=== PATIENT | male | born 1970 | race Caucasian/White ===

== ENCOUNTER 2017-04-07 08:55 | Inpatient (IN) | payer SELFPAY ==
[~2017-04-07] VITALS: Ht 167.6 cm; Wt 81.6 kg
[2017-04-07 11:12] LABS: BASOPHILS % 0.3 % (0.0-2.0); EOSINOPHILS % 0.2 % (0.0-5.0); HEMATOCRIT. 40.3 % (42.0-52.0); HEMOGLOBIN. 13.9 g/dL (14.0-18.0); LYMPHOCYTES % 9.5 % (20.0-50.0); MEAN CORPUSCULAR HEMOGLOBIN 34.2 pg (28.0-32.0); MEAN PLATELET VOLUME 7.9 fl (7.4-10.4); MONOCYTES % 11.2 % (2.0-8.0); NEUTROPHILS % 78.8 % (40.0-76.0); PLATELET 245 x1000/uL (130-400); RED BLOOD CELL COUNT 4.07 mill/uL (4.7-6.1); RED CELL DISTRIBUTION WIDTH 13.1 % (11.6-14.6)
[2017-04-07 11:20] LABS: CARBON DIOXIDE 27 mEq/L (21-32); CHLORIDE 100 mEq/L (98-107); ETHANOL BLOOD < 10 mg/dL
[2017-04-07 11:57] LABS: CLARITY URINE CLEAR (CLEAR); COLOR URINE YELLOW (YELLOW); GLUCOSE URINE 3+ (NEGATIVE); KETONES URINE NEGATIVE (NEGATIVE); LEUKOCYTE ESTERASE URINE 1+ (NEGATIVE); NITRITE URINE NEGATIVE (NEGATIVE); OCCULT BLOOD URINE 3+ (NEGATIVE); PH URINE 5.5 (4.5-8.0); PROTEIN URINE TRACE (NEGATIVE); SPECIFIC GRAVITY URINE 1.024 (1.005-1.030)
[2017-04-07 12:14] LABS: *AMPHETAMINES SCREEN URINE PRESUMTIVE POSITIVE (NEGATIVE); *BARBITURATES SCREEN URINE NEGATIVE (NEGATIVE); *BENZODIAZEPINES SCREEN URINE NEGATIVE (NEGATIVE); *COCAINE SCREEN URINE NEGATIVE (NEGATIVE); CANNABINOID URINE SCREEN PRESUMTIVE POSITIVE (NEGATIVE); METHADONE URINE SCREEN NEGATIVE (NEGATIVE); OPIATES URINE SCREEN NEGATIVE (NEGATIVE); PHENCYCLIDINE URINE SCREEN NEGATIVE (NEGATIVE)
[2017-04-07] MEDS ORDERED: SODIUM CHLORIDE 0.9% 10ML VIAL ONE (12:26)
[2017-04-07] MEDS ORDERED: IOHEXOL-300 100 ML BOTTLE ONE (12:26)
[2017-04-07] MEDS ORDERED: LEVOFLOXACIN 500MG PREMIX 100 ML IV SCH (14:00)
[2017-04-07] MEDS ORDERED: METRONIDAZOLE 500 MG PREMIX 100 ML IV SCH (14:30)
[2017-04-07] MEDS ORDERED: ACETAMINOPHEN 325MG TABLET PO ONE (15:00)
[2017-04-07] MEDS ORDERED: KETOROLAC 30MG/ML VIAL IV ONE (15:00)
[2017-04-07 16:00] VITALS: BP 115/77
[2017-04-07 16:40] VITALS: BP 115/77
[2017-04-07] MEDS ORDERED: MAGNESIUM/ALUMINUM HYDROXIDE/SIMETHICONE 30ML UDC PO PRN (18:00)
[2017-04-07] MEDS ORDERED: CLONIDINE 0.1MG TABLET PO PRN (18:00)
[2017-04-07] MEDS ORDERED: DIPHENHYDRAMINE 50MG/ML VIAL IV PRN (18:00)
[2017-04-07] MEDS ORDERED: ONDANSETRON HCL 4MG/2ML VIAL IV PRN (18:00)
[2017-04-07] MEDS ORDERED: ACETAMINOPHEN 325MG TABLET PO PRN (18:00)
[2017-04-07] MEDS ORDERED: HYDROCODONE/ACETAMINOPHEN 10/325MG TABLET PO PRN (18:00)
[2017-04-07 20:00] VITALS: BP 106/67
[2017-04-07] MEDS ORDERED: POTASSIUM CHLORIDE 20MEQ TABLET SR PO NR (20:15)
[2017-04-08 00:52] VITALS: BP 95/55
[2017-04-08] MEDS: METRONIDAZOLE 500 MG PREMIX 100 ML IV SCH ×3 (01:03→18:22)
[2017-04-08] MEDS: SODIUM CHLORIDE 0.9% 1,000 ML IV SCH ×3 (01:24→18:21)
[2017-04-08 04:50] VITALS: BP 104/62
[2017-04-08 05:52] LABS: BASOPHILS % 0.2 % (0.0-2.0); EOSINOPHILS % 0.4 % (0.0-5.0); HEMATOCRIT. 39.6 % (42.0-52.0); HEMOGLOBIN. 13.6 g/dL (14.0-18.0); LYMPHOCYTES % 13.3 % (20.0-50.0); MEAN CORPUSCULAR HEMOGLOBIN 33.9 pg (28.0-32.0); MEAN CORPUSCULAR VOLUME 98.6 fL (80.0-94.0); MEAN PLATELET VOLUME 8.2 fl (7.4-10.4); MONOCYTES % 12.5 % (2.0-8.0); NEUTROPHILS % 73.6 % (40.0-76.0); PLATELET 242 x1000/uL (130-400); RED BLOOD CELL COUNT 4.02 mill/uL (4.7-6.1); RED CELL DISTRIBUTION WIDTH 12.8 % (11.6-14.6)
[2017-04-08 06:44] LABS: CARBON DIOXIDE 27 mEq/L (21-32); CHLORIDE 103 mEq/L (98-107)
[2017-04-08 08:00] VITALS: BP 114/79
[2017-04-08 12:00] VITALS: BP 108/62
[2017-04-08] MEDS ORDERED: LEVOFLOXACIN 500MG PREMIX 100 ML IV SCH (14:00)
[2017-04-08 16:00] VITALS: BP 107/62
[2017-04-08 20:00] VITALS: BP 115/75
[2017-04-09] VITALS: BP 118/76
[2017-04-09] MEDS: SODIUM CHLORIDE 0.9% 1,000 ML IV SCH ×2 (03:53→09:00)
[2017-04-09] MEDS: METRONIDAZOLE 500 MG PREMIX 100 ML IV SCH ×2 (03:53→08:59)
[2017-04-09 04:45] VITALS: BP 116/74
[2017-04-09 06:54] LABS: BASOPHILS % 0.2 % (0.0-2.0); EOSINOPHILS % 1.7 % (0.0-5.0); HEMATOCRIT. 40.1 % (42.0-52.0); HEMOGLOBIN. 13.7 g/dL (14.0-18.0); LYMPHOCYTES % 13.5 % (20.0-50.0); MEAN CORPUSCULAR HEMOGLOBIN 33.6 pg (28.0-32.0); MEAN CORPUSCULAR VOLUME 98.7 fL (80.0-94.0); MEAN PLATELET VOLUME 8.2 fl (7.4-10.4); MONOCYTES % 11.7 % (2.0-8.0); NEUTROPHILS % 72.9 % (40.0-76.0); PLATELET 272 x1000/uL (130-400); RED BLOOD CELL COUNT 4.06 mill/uL (4.7-6.1); RED CELL DISTRIBUTION WIDTH 12.5 % (11.6-14.6)
[2017-04-09 08:00] VITALS: BP 94/65
[2017-04-09] MEDS ORDERED: GENTAMICIN SULFATE 180 MG in SODIUM CHLORIDE 0.9% 100 ML IV SCH (11:00)
== END 2017-04-09 09:45 | disposition left against medical advice (07) | DRG 720 ==
LOC: ER 09:49 → 6EST 14:40 → EDBEDREQ 15:18 → CANRESERV 15:24 → ENRESERV 15:24 → 6EST 17:15
PROVIDERS: ADMIT Internal Medicine; ATTEND Internal Medicine
DX: A41.9 Sepsis, unspecified organism (principal); K57.92 Diverticulitis of intestine, part unspecified, without perforation or abscess without bleeding; N45.3 Epididymo-orchitis; F17.210 Nicotine dependence, cigarettes, uncomplicated; F10.20 Alcohol dependence, uncomplicated; E87.6 Hypokalemia; Z60.2 Problems related to living alone; F15.10 Other stimulant abuse, uncomplicated; Z83.3 Family history of diabetes mellitus
CPT/HCPCS: 36415; 74177; 76870; 80048; 80053; 80305; 81001; 83036; 85025; 87040; 93970; 93976; 96365; 96366; 99285; A4216; G0482; J1580; J1956; J3490; J7030; J7050; Q9967

== ENCOUNTER 2017-06-03 09:53 | Emergency (ER) | payer SELFPAY ==
[~2017-06-03] VITALS: Ht 167.6 cm; Wt 82.0 kg
[2017-06-03] MEDS ORDERED: KETOROLAC 60MG/2ML VIAL IM ONE (13:00)
[2017-06-03 15:01] VITALS: BP 129/85
== END 2017-06-03 15:23 | disposition home or self-care (01) ==
LOC: ER 14:14
DX: S29.011A Strain of muscle and tendon of front wall of thorax, initial encounter (principal); F17.210 Nicotine dependence, cigarettes, uncomplicated; Y04.0XXA Assault by unarmed brawl or fight, initial encounter; Y93.89 Activity, other specified; Y92.89 Other specified places as the place of occurrence of the external cause
CPT/HCPCS: 96372; 99283; J1885

== ENCOUNTER 2017-09-18 07:50 | Emergency (ER) | payer SELFPAY ==
[~2017-09-18] VITALS: Ht 170.2 cm; Wt 77.0 kg
[2017-09-18] MEDS ORDERED: TETANUS, DIPHTHERIA, PERTUSSIS VAC/PF 0.5ML (>7YR OLD) IM ONE (08:45)
[2017-09-18] MEDS ORDERED: LIDOCAINE HCL 1% 20ML VIAL (Pyxis) INJ INFIL ONE (09:00)
[2017-09-18] MEDS ORDERED: ACETAMINOPHEN 325MG TABLET PO ONE (09:00)
[2017-09-18] MEDS ORDERED: BACITRACIN/POLYMYXIN B SULFATE OINT 15GM TOP ONE (09:15)
[2017-09-18] MEDS ORDERED: BACITRACIN ZINC OINT UDPKT TOP ONE (09:30)
[2017-09-18 09:35] VITALS: BP 110/76
== END 2017-09-18 09:49 | disposition home or self-care (01) ==
LOC: ER 07:50
DX: S01.81XA Laceration without foreign body of other part of head, initial encounter (principal); F17.200 Nicotine dependence, unspecified, uncomplicated; F12.10 Cannabis abuse, uncomplicated; Y08.89XA Assault by other specified means, initial encounter; Y93.89 Activity, other specified; Y92.89 Other specified places as the place of occurrence of the external cause; Y99.8 Other external cause status
CPT/HCPCS: 12011; 90471; 90715; 99283; J3490; X7700; Z7610

== ENCOUNTER 2019-07-20 09:24 | Emergency (ER) | payer MEDICAID ==
[~2019-07-20] VITALS: Ht 167.6 cm; Wt 82.0 kg
[2019-07-20 09:37] VITALS: BP 123/70
== END 2019-07-20 11:25 | disposition home or self-care (01) ==
LOC: ER 10:10
DX: L02.413 Cutaneous abscess of right upper limb (principal); R03.0 Elevated blood-pressure reading, without diagnosis of hypertension; F12.90 Cannabis use, unspecified, uncomplicated; F10.21 Alcohol dependence, in remission
CPT/HCPCS: 99283

== ENCOUNTER 2019-07-22 12:51 | Emergency (ER) | payer MEDICAID ==
[~2019-07-22] VITALS: Ht 167.6 cm; Wt 82.0 kg
[2019-07-22 13:03] VITALS: BP 111/77
[2019-07-22] MEDS ORDERED: LIDOCAINE HCL/PF 1% 10 MG/ML 5ML VIAL IJ ONE (15:15)
== END 2019-07-22 16:11 | disposition home or self-care (01) ==
LOC: ER 12:51
DX: L02.413 Cutaneous abscess of right upper limb (principal); F12.10 Cannabis abuse, uncomplicated; Z90.49 Acquired absence of other specified parts of digestive tract
CPT/HCPCS: 10060; 99283; J3490

== ENCOUNTER 2019-07-24 07:52 | Emergency (ER) | payer MEDICAID ==
[~2019-07-24] VITALS: Ht 167.6 cm; Wt 82.0 kg
[2019-07-24 08:10] VITALS: BP 102/61
[2019-07-24] MEDS ORDERED: BACITRACIN ZINC OINT UDPKT TOP ONE (08:30)
[2019-07-24] MEDS ORDERED: BACITRACIN 15GM TUBE TOP ONE (08:45)
== END 2019-07-24 08:35 | disposition home or self-care (01) ==
LOC: ER 07:52
DX: S41.111D Laceration without foreign body of right upper arm, subsequent encounter (principal); X58.XXXD Exposure to other specified factors, subsequent encounter
CPT/HCPCS: 99283

== ENCOUNTER 2019-07-27 09:50 | Emergency (ER) | payer MEDICAID ==
[~2019-07-27] VITALS: Ht 165.1 cm; Wt 89.0 kg
[2019-07-27 11:05] VITALS: BP 110/79
== END 2019-07-27 14:01 | disposition home or self-care (01) ==
LOC: ER 10:53
DX: L02.413 Cutaneous abscess of right upper limb (principal); Z48.00 Encounter for change or removal of nonsurgical wound dressing
CPT/HCPCS: 99281

== ENCOUNTER 2019-08-23 13:01 | Emergency (ER) | payer MEDICAID ==
[~2019-08-23] VITALS: Ht 165.1 cm; Wt 62.0 kg
[2019-08-23] MEDS ORDERED: KETOROLAC 60MG/2ML VIAL IM ONE (14:45)
[2019-08-23 16:20] VITALS: BP 118/72
== END 2019-08-23 16:20 | disposition home or self-care (01) ==
LOC: ER 15:17
DX: R51 Headache (principal)
CPT/HCPCS: 96372; 99283; J1885

== ENCOUNTER 2019-09-19 04:28 | Emergency (ER) | payer SELFPAY ==
[~2019-09-19] VITALS: Ht 167.6 cm; Wt 82.0 kg
[2019-09-19] MEDS ORDERED: METOCLOPRAMIDE HCL 10MG TABLET PO ONE (06:45)
[2019-09-19] MEDS ORDERED: IBUPROFEN 800MG TABLET PO ONE (06:45)
[2019-09-19 07:17] LABS: CLARITY URINE CLOUDY (CLEAR); COLOR URINE DARK YELLOW (YELLOW); KETONES URINE TRACE (NEGATIVE); LEUKOCYTE ESTERASE URINE TRACE (NEGATIVE); NITRITE URINE NEGATIVE (NEGATIVE); OCCULT BLOOD URINE NEGATIVE (NEGATIVE); PROTEIN URINE 1+ (NEGATIVE); SPECIFIC GRAVITY URINE 1.029 (1.005-1.030)
[2019-09-19 07:52] LABS: *AMPHETAMINES SCREEN URINE PRESUMTIVE POSITIVE (NEGATIVE); *BARBITURATES SCREEN URINE NEGATIVE (NEGATIVE)
[2019-09-19 07:53] LABS: *BENZODIAZEPINES SCREEN URINE NEGATIVE (NEGATIVE); *COCAINE SCREEN URINE NEGATIVE (NEGATIVE); METHADONE URINE SCREEN NEGATIVE (NEGATIVE); OPIATES URINE SCREEN NEGATIVE (NEGATIVE); PHENCYCLIDINE URINE SCREEN NEGATIVE (NEGATIVE)
[2019-09-19 07:54] LABS: CANNABINOID URINE SCREEN PRESUMTIVE POSITIVE (NEGATIVE)
[2019-09-19 07:55] LABS: CHLORIDE 106 mEq/L (98-107)
[2019-09-19 07:58] LABS: ETHANOL BLOOD < 10 mg/dL
[2019-09-19 07:59] LABS: BASOPHILS % 0.5 % (0.0-2.0); EOSINOPHILS % 2.1 % (0.0-5.0); HEMATOCRIT. 39.2 % (42.0-52.0); HEMOGLOBIN. 13.7 g/dL (14.0-18.0); LYMPHOCYTES % 28.8 % (20.0-50.0); MEAN CORPUSCULAR HEMOGLOBIN 33.7 pg (28.0-32.0); MEAN CORPUSCULAR VOLUME 96.1 fL (80.0-94.0); MEAN PLATELET VOLUME 7.9 fl (7.4-10.4); MONOCYTES % 9.9 % (2.0-8.0); NEUTROPHILS % 58.7 % (40.0-76.0); PLATELET 257 x1000/uL (130-400); RED BLOOD CELL COUNT 4.08 mill/uL (4.7-6.1); RED CELL DISTRIBUTION WIDTH 12.8 % (11.6-14.6)
[2019-09-19 14:43] VITALS: BP 100/63
== END 2019-09-19 14:47 | disposition home or self-care (01) ==
LOC: ER 04:28
DX: F32.9 Major depressive disorder, single episode, unspecified (principal); R51 Headache; F15.10 Other stimulant abuse, uncomplicated; F12.10 Cannabis abuse, uncomplicated; F17.210 Nicotine dependence, cigarettes, uncomplicated; Z90.49 Acquired absence of other specified parts of digestive tract
CPT/HCPCS: 36415; 80305; 80320; 81003; 82962; 99284; G0480

== ENCOUNTER 2020-12-05 01:52 | Emergency (ER) | payer SELFPAY ==
[~2020-12-05] VITALS: Ht 167.6 cm; Wt 82.0 kg
[2020-12-05 03:07] LABS: BASOPHILS % 0.4 % (0.0-2.0); EOSINOPHILS % 1.4 % (0.0-5.0); HEMATOCRIT. 42.9 % (42.0-52.0); HEMOGLOBIN. 14.9 g/dL (14.0-18.0); LYMPHOCYTES % 29.8 % (20.0-50.0); MEAN CORPUSCULAR HEMOGLOBIN 33.4 pg (28.0-32.0); MEAN CORPUSCULAR VOLUME 96.1 fL (80.0-94.0); MEAN PLATELET VOLUME 7.9 fl (7.4-10.4); MONOCYTES % 8.7 % (2.0-8.0); NEUTROPHILS % 59.7 % (40.0-76.0); PLATELET 287 x1000/uL (130-400); RED BLOOD CELL COUNT 4.46 mill/uL (4.7-6.1); RED CELL DISTRIBUTION WIDTH 13.5 % (11.6-14.6)
[2020-12-05 03:12] LABS: CHLORIDE 101 mEq/L (98-107)
[2020-12-05 03:17] LABS: ETHANOL BLOOD < 10 mg/dL
[2020-12-05 04:06] LABS: CLARITY URINE CLEAR (CLEAR); COLOR URINE YELLOW (YELLOW); KETONES URINE NEGATIVE (NEGATIVE); LEUKOCYTE ESTERASE URINE 1+ (NEGATIVE); NITRITE URINE NEGATIVE (NEGATIVE); OCCULT BLOOD URINE NEGATIVE (NEGATIVE); PROTEIN URINE TRACE (NEGATIVE); SPECIFIC GRAVITY URINE 1.017 (1.005-1.030)
[2020-12-05 04:18] LABS: *BARBITURATES SCREEN URINE NEGATIVE (NEGATIVE); *BENZODIAZEPINES SCREEN URINE NEGATIVE (NEGATIVE)
[2020-12-05 04:19] LABS: *COCAINE SCREEN URINE NEGATIVE (NEGATIVE); CANNABINOID URINE SCREEN PRESUMTIVE POSITIVE (NEGATIVE); OPIATES URINE SCREEN NEGATIVE (NEGATIVE); PHENCYCLIDINE URINE SCREEN NEGATIVE (NEGATIVE)
[2020-12-05 04:20] LABS: *AMPHETAMINES SCREEN URINE PRESUMTIVE POSITIVE (NEGATIVE)
[2020-12-05 04:21] LABS: METHADONE URINE SCREEN NEGATIVE (NEGATIVE)
[2020-12-05 12:03] VITALS: BP 123/67
== END 2020-12-05 12:05 | disposition home or self-care (01) ==
LOC: ER 01:52
DX: F15.151 Other stimulant abuse with stimulant-induced psychotic disorder with hallucinations (principal); R45.851 Suicidal ideations; R45.850 Homicidal ideations; F16.151 Hallucinogen abuse with hallucinogen-induced psychotic disorder with hallucinations; F12.151 Cannabis abuse with psychotic disorder with hallucinations
CPT/HCPCS: 36415; 80053; 80305; 80307; 80320; 80329; 81003; 85025; 93005; 99285; G0480

== ENCOUNTER 2020-12-06 23:52 | Emergency (ER) | payer SELFPAY ==
[~2020-12-06] VITALS: Ht 167.6 cm; Wt 82.0 kg
[2020-12-07] MEDS ORDERED: ONDANSETRON 4MG ODT PO STA (00:28)
[2020-12-07] MEDS ORDERED: IBUPROFEN 600MG TABLET PO STA (00:28)
[2020-12-07 01:20] VITALS: BP 115/63
== END 2020-12-07 01:53 | disposition home or self-care (01) ==
LOC: ER 23:52
DX: R51.9 Headache, unspecified (principal); F20.9 Schizophrenia, unspecified; F15.10 Other stimulant abuse, uncomplicated; F12.10 Cannabis abuse, uncomplicated
CPT/HCPCS: 99283; Q0162

== ENCOUNTER 2023-01-03 13:48 | Emergency (ER) | payer SELFPAY ==
[~2023-01-03] VITALS: Ht 170.2 cm; Wt 75.0 kg
[2023-01-03 14:01] VITALS: BP 156/106
== END 2023-01-03 19:57 | disposition left against medical advice (07) ==
LOC: ER 13:56
DX: Z53.21 Procedure and treatment not carried out due to patient leaving prior to being seen by health care provider (principal)

== ENCOUNTER 2023-02-05 08:17 | Emergency (ER) | payer MEDICAID ==
[~2023-02-05] VITALS: Ht 167.6 cm; Wt 87.0 kg
[2023-02-05 08:28] VITALS: BP 116/74
[2023-02-05] MEDS ORDERED: ACETAMINOPHEN 325MG TABLET PO ONE (09:00)
== END 2023-02-05 10:05 | disposition home or self-care (01) ==
LOC: ER 08:17
DX: R51.9 Headache, unspecified (principal); Z86.59 Personal history of other mental and behavioral disorders
CPT/HCPCS: 99281